=== PATIENT | male | born 1995 | race Caucasian/White ===

== ENCOUNTER 2024-06-24 16:51 | Emergency (ER) | payer OTHER, SELFPAY ==
[2024-06-24 16:52] VITALS: BP 130/79
[2024-06-24 17:11] LABS: % Basophils 0.4 % (0-2); % Eosinophils 2.1 % (0-6); % Immature Granulocytes 0.1 % (0-0.5); % Lymphocytes 19.9 % (20.5-51.1); % Monocytes 7.3 % (1.7-9.3); % Neutrophils 70.2 % (42.2-75.2); Absolute Eosinophils 0.2 10^3/uL (0-0.7); Absolute Lymphocytes 1.6 10^3/uL (1.2-3.4); Absolute Monocytes 0.6 10^3/uL (0.1-0.6); Absolute Neutrophils 5.7 10^3/uL (1.4-6.5); Hematocrit 42.4 % (39.0-52.0); Hemoglobin 14.3 g/dL (13.0-18.0); Mean Corp Hgb Conc. 33.7 g/dL (33.0-37.0); Mean Corpuscular Hgb 28.7 pg (27.0-31.0); Mean Platelet Volume 10.2 fL (7.4-10.4); Nucleated Red Blood Cells % 0 % (-); Platelet Count 266 10^3/uL (130-400); Red Blood Cell Count 4.99 10^6/uL (4.70-6.10); Red Cell Dist. Width 12.5 % (11.5-14.5); White Blood Cell Count 8.1 10^3/uL (4.8-10.8)
[2024-06-24 17:20] LABS: ALT (SGPT) 14 U/L (0-50); AST (SGOT) 22 U/L (17-59); Alkaline Phosphatase 50 U/L (38-126); Blood Urea Nitrogen 14 mg/dl (9-20); Calcium 9.9 mg/dl (8.4-10.2); Carbon Dioxide 29 mmol/L (22-30); Chloride 103 mmol/L (98-107); Glucose 89 mg/dl (70-99); Lipase 61 U/L (23-300); Sodium 142 mmol/L (135-145); Total Bilirubin 0.4 mg/dl (0.2-1.3); Total Protein 7.8 g/dl (6.3-8.2); eGFR > 60.00
[2024-06-24 17:26] LABS: Potassium 5.1 mmol/L (3.5-5.1)
[2024-06-24 18:00] LABS: Urine Albumin Negative (Neg - Trace); Urine Bilirubin Negative (Negative); Urine Character Clear (Clear); Urine Color Yellow; Urine Glucose Negative (Negative); Urine Ketone Negative (Negative); Urine Leukocyte Negative (Negative); Urine Nitrite Negative (Negative); Urine Occult Blood Negative (Negative); Urine Specific Gravity 1.015 (<1.030); Urine Urobilinogen Negative (Neg - 1+); Urine pH 6.5 (5.0-9.0)
[2024-06-24 18:21] VITALS: BMI 29.3
--- NOTE | 2024-06-24 18:39 | ED.GENMED ---
History of Present Illness
<Ysabel López PA-C - Last Filed: 06/26/24 13:51>
General
Chief Complaint: Abdominal Pain
Source: patient
Exam Limitations: none
Time Seen by Provider: 06/24/24 17:32
Nursing documentation reviewed up to this point in time: agreed with
History of Present Illness
History of Present Illness:
29 y/o M
h/o remote hernia repair (peds, inguinal) x 3
appe
here with lower abd pain and loose stools x 6 days
has had 4-5 episodes nonbloody not totally formed stools
had URI last week before these symtpoms started, cough, sore throat hwich resolved
then the abd pain/loost stools started
abd pain is colicky, not worse with eating
no fever/chills/bloodys tool, recent abx
no urinary sypmtoms, testicular pain/swelling
pt says he knows that his mesh was recalled and is concerned that he has a bowel obstruction
pain is minimal at the moemnt; hasn't tried anything to help tjje pain.
he also has had gallbladder sludge previously; has had a few episodes of pain in RUQ but this doesn't feel at all like that.
pt did not test for covid
he has never had vaccine
Past History
<Ysabel López PA-C - Last Filed: 06/26/24 13:51>
Past History
ED Past Medical History: None
ED Past Surgical History: Appendectomy and Other (hernia)
Social History
Tobacco: Non-smoker
Alcohol: None
Drug: None
Personal:
Living: with family
Review of Systems
<Ysabel López PA-C - Last Filed: 06/26/24 13:51>
Review of Systems
Allergies reviewed?: Yes
All Other Systems: Not applicable
Phy Exam
<Ysabel López PA-C - Last Filed: 06/26/24 13:51>
Physical Exam
Physical Exam:
GENERAL: Alert , in no apparent distress
EYE: pupils equal and reactive
NECK: Supple
ENT: o/p clr, mmm.
CARDIAC: Regular rate and rhythm .
LUNGS: Clear breath sounds bilaterally, no acute respiratory distress, no wheezes/rales/rhonchi
ABDOMEN: Soft, without focal tenderness, no r/g, no cvat, normal bowel sounds
neg murhy's sign
NEUROLOGICAL: Alert and oriented, no focal neuro deficits
SKIN: Warm and dry, skin intact.
PSYCH: Normal and appropriate interaction.
Course
<Ysabel López PA-C - Last Filed: 06/26/24 13:51>
Orders/Labs/Results
Orders:
Orders
06/24/24 16:58
Complete Blood Count/With Diff Urgent
Comprehensive Metabolic Panel Urgent
Lipase Urgent
06/24/24 17:47
Urinalysis Reflex To Culture Urgent
Date Specimen was Collected: 06/24/24
Time Specimen was Collected: 16:55
06/24/24 17:58
CT Abd/Pel (IV only)-DH only Urgent
Comment:
Reason For Exam: LOWER ABD PAIN, DIARRHEA X 6 DAYS
Dicyclomine [Bentyl] 20 mg PO NOW STA
06/24/24 19:52
LevoFLOXacin [Levaquin] 500 mg PO NOW STA
Abnormal Lab Results
06/24/24
16:58
Lymphocytes % 19.9 L %
(20.5-51.1)
06/24/24 16:58
06/24/24 16:58
Vital Signs
Initial and Last Documented VS:
Initial Vital Signs
Temp Pulse Resp BP Pulse Ox
97.7 F 73 16 130/79 100
06/24/24 16:52 06/24/24 16:52 06/24/24 16:52 06/24/24 16:52 06/24/24 16:52
Last Documented Vital Signs
Temp Pulse Resp BP Pulse Ox
97.7 F 73 16 130/79 100
06/24/24 16:52 06/24/24 16:52 06/24/24 16:52 06/24/24 16:52 06/24/24 16:52
<Ana Paula Escamilla NP - Last Filed: 06/25/24 18:51>
Orders/Labs/Results
Orders:
Orders
06/24/24 16:58
Complete Blood Count/With Diff Urgent
Comprehensive Metabolic Panel Urgent
Lipase Urgent
06/24/24 17:47
Urinalysis Reflex To Culture Urgent
Date Specimen was Collected: 06/24/24
Time Specimen was Collected: 16:55
06/24/24 17:58
CT Abd/Pel (IV only)-DH only Urgent
Comment:
Reason For Exam: LOWER ABD PAIN, DIARRHEA X 6 DAYS
Dicyclomine [Bentyl] 20 mg PO NOW STA
06/24/24 19:52
LevoFLOXacin [Levaquin] 500 mg PO NOW STA
Abnormal Lab Results
06/24/24
16:58
Lymphocytes % 19.9 L %
(20.5-51.1)
06/24/24 16:58
06/24/24 16:58
Vital Signs
Initial and Last Documented VS:
Initial Vital Signs
Temp Pulse Resp BP Pulse Ox
97.7 F 73 16 130/79 100
06/24/24 16:52 06/24/24 16:52 06/24/24 16:52 06/24/24 16:52 06/24/24 16:52
Last Documented Vital Signs
Temp Pulse Resp BP Pulse Ox
97.7 F 73 16 130/79 100
06/24/24 16:52 06/24/24 16:52 06/24/24 16:52 06/24/24 16:52 06/24/24 16:52
<Ysabel López PA-C - Last Filed: 06/26/24 13:51>
MDM/Problems Addressed
Differential Diagnosis Includes:
colitis, bowel obstruction, uti, hernia
MDM/Problems Addressed:
29 y/o M with h/o remote childhood inguinal hernia repairs
appe
here with lower abd pain and loose stool after havin URI last week
he has not had any c diff RF
no fever
no bloody stool
pain comes and goes
nothing tried for symptoms
well appearing
nontender abdomen
normal wbc
neg ua
will obtain CT
<Ana Paula Escamilla NP - Last Filed: 06/25/24 18:51>
*Critical Care Note
Total Time (30-74mins, 75-104mins- exclusive of procedures): Not Applicable
<Ana Paula Escamilla NP - Last Filed: 06/25/24 18:51>
Update Note
Update Note:
Ct report reviewed. +proctitis. Discussed case with Dr. Quintero. WIll give 5 day course of levquin. Initiated in ED. WIll discharge home on clear liquids, close follow up with PCP. Given instructions on s/s to return ot ED and he is agreeable
to plan.
ED Attending Note
<Ysabel López PA-C - Last Filed: 06/26/24 13:51>
-
Portions of this chart may have been created with voice recognition software.� Occasional wrong word or��sound alike� substitutions may have occurred due to the inherent limitations of voice recognition software.
Discharge Plan
Departure
Patient Disposition: Home (Routine Discharge)
Date of Disposition: 06/24/24
Time of Disposition: 19:53
Patient with high blood pressure during this ER visit?: No
Condition: Good
Covid-19: Not Applicable
Discharge Problem:
Abdominal pain
Instructions: Diarrhea in teens and adults, Abdominal Pain
Prescriptions:
New
dicyclomine 20 mg tablet
20 mg PO TID PRN (Reason: ABDOMINAL PAIN) Qty: 15 0RF
levofloxacin 500 mg tablet
500 mg PO DAILY 5 Days Qty: 5 0RF
No Action
oxycodone 5 mg tablet
5 mg PO Q4HPRN PRN (Reason: breakthrough/severe pain) Qty: 12 0RF
Referrals:
Moira Gomez MD [Family Provider] -
Activity Restrictions/Additional Instructions:
YOUR BLOOD WORK AND URINE WERE REASSURING
WE DID A CAT SACAN OF YOUR ABDOMEN
EAT A BLAND DIET
STAY HYDRATED
USE THE BRAT DIET (BANANAS RICE APPLESAUCE TOAST) TO HELP WITH YOUR STOOLS
FOR PAIN YOU CAN TRY BENTYL 20 MG 3 TIMES A DAY NEEDED
IF YOU DONT HAVE PAIN YOU DO NOT NEED TO TAKE THIS MEDICATION
FOLLOW UP WITH GI DOCTOR PLANNED
RETURN FOR: SEVERE DIARRHEA, BLOODY STOOL, FEVER, VOMITING, OR ANY CONCERNS.
Interventions
Interventions:
*Risk Screen - Suicide Last Done: 06/24/24 18:42
*General Assessment Last Done: 06/24/24 18:42
*Neglect/Abuse Screening Last Done: 06/24/24 18:42
*ED COVID-19 Vaccine History Last Done: 06/24/24 18:21
*Nursing Disposition Last Done: 06/24/24 20:07
[facility] Assessment Last Done: 06/24/24 18:24
Discharge Date and Time
Discharge Date/Time: 06/24/24 20:16
Print Language: SAMI
[2024-06-24] MEDS: BENTYL 20 MG PO (18:40)
[2024-06-24] MEDS: LEVAQUIN 500 MG PO (20:13)
== END 2024-06-24 20:16 | disposition home or self-care (01) ==
LOC: EMR 16:51
PROVIDERS: EMERGENCY PHYSICIAN Student in an Organized Health Care Education/Training Program; FAMILY PHYSICIAN Internal Medicine
DX: R10.30 Lower abdominal pain, unspecified (principal); R19.7 Diarrhea, unspecified; Z90.49 Acquired absence of other specified parts of digestive tract
CPT/HCPCS: 99284; 74177; 80053; 81003; 83690; 85025; Q9967

== ENCOUNTER 2024-07-08 06:57 | Emergency (ER) | payer OTHER, SELFPAY ==
[2024-07-08 06:58] VITALS: BP 129/89
--- NOTE | 2024-07-08 08:07 | ED.GENMED ---
History of Present Illness
<Bindu Olivas MD, Resident - Last Filed: 07/08/24 11:11>
General
Chief Complaint: Abdominal Pain
Source: patient
Time Seen by Provider: 07/08/24 08:05
History of Present Illness
History of Present Illness:
This is a 22 year old male patient with PMH of prior inguinal surgeries (x3 right ingunial hernia repair) who presented to the ED with concerns of abdominal pain. He states that he continues to have abdominal pain in the right upper quadrant that is
intermittent colicky type of pain that is associated with meals and 1 episode of vomiting this morning. He also has 4-5 watery diarrhea episodes in a day that is non-bloody. He denies any fever, chills or difficulty in urination. He was recently
seen in the ER 2 weeks ago for similar complaints and was discharge with 5 day course of levaquin that he finished. He did not find any relief after antibiotic and did follow up with his PCP who had set up a GI appointment for him next week.
Past History
<Bindu Olivas MD, Resident - Last Filed: 07/08/24 11:11>
Past History
ED Past Medical History: None
ED Past Surgical History: Appendectomy and Other (right inguinal hernia)
Social History
Tobacco: Non-smoker
Alcohol: None
Drug: None
Personal:
Living: with family
Review of Systems
<Bindu Olivas MD, Resident - Last Filed: 07/08/24 11:11>
Review of Systems
Constitutional: Denies fever or chills
Respiratory: Reports no symptoms
Cardiac: Reports no symptoms
ABD/GI: Reports abdominal pain, vomiting and diarrhea
: Denies dysuria
Musculoskeletal: Reports no symptoms
Phy Exam
<Bindu Olivas MD, Resident - Last Filed: 07/08/24 11:11>
General Physical Exam
General Presentation: no apparent distress
Cardiovascular Exam
Cardiovascular Exam: regular rate/rhythm and no murmur
Heart Sounds: normal
Pulmonary Exam
Pulmonary Exam: lungs clear, no respiratory distress and no crackles
Gastrointestinal Exam
Gastrointestinal Exam: soft, non distended, no masses and tender (right upper quadrant)
Neurological Exam
Neurological Exam: oriented x3 and speech normal
Musculoskeletal Exam
Musculoskeletal Exam: no edema
Skin Exam
Skin Exam: warm/dry
Psychiatric Exam
Psychiatric Exam: normal mood/affect
Course
<Bindu Leydi Olivas MD, Resident - Last Filed: 07/08/24 11:11>
Orders/Labs/Results
Orders:
Orders
07/08/24 08:32
Acetaminophen [Tylenol] 650 mg PO NOW STA
07/08/24 08:33
US Abdomen Complete/Upper Urgent
Comment:
Reason For Exam: right upper quadrant pain
07/08/24 08:40
Complete Blood Count/With Diff Urgent
Comprehensive Metabolic Panel Urgent
Lipase Urgent
C DIFF [C difficile Antigen & Toxins] Urgent
[place] Source: Feces/Stool
Specimen Description:
Date Specimen was Collected: 07/08/24
Time Specimen was Collected: 08:39
07/08/24 08:41
Stool Culture Urgent
[place] Source: Feces/Stool
Specimen Description:
Date Specimen was Collected: 07/08/24
Time Specimen was Collected: 08:48
Abnormal Lab Results
07/08/24
08:40
MPV 10.6 H fL
(7.4-10.4)
Absolute Lymphs (auto) 0.7 L 10^3/uL
(1.2-3.4)
Immature Gran % 0.6 H %
(0-0.5)
Neutrophils % 80.4 H %
(42.2-75.2)
Lymphocytes % 10.1 L %
(20.5-51.1)
BUN 7 L mg/dl
(9-20)
07/08/24 08:40
07/08/24 08:40
Vital Signs
Initial and Last Documented VS:
Initial Vital Signs
Temp Pulse Resp BP Pulse Ox
98.2 F 84 16 129/89 98
07/08/24 06:58 07/08/24 06:58 07/08/24 06:58 07/08/24 06:58 07/08/24 06:58
Last Documented Vital Signs
Temp Pulse Resp BP Pulse Ox
98.2 F 71 16 124/77 98
07/08/24 06:58 07/08/24 10:33 07/08/24 10:33 07/08/24 10:33 07/08/24 10:33
<Monie Hoff MD - Last Filed: 07/08/24 10:39>
Orders/Labs/Results
Orders:
Orders
07/08/24 08:32
Acetaminophen [Tylenol] 650 mg PO NOW STA
07/08/24 08:33
US Abdomen Complete/Upper Urgent
Comment:
Reason For Exam: right upper quadrant pain
07/08/24 08:40
Complete Blood Count/With Diff Urgent
Comprehensive Metabolic Panel Urgent
Lipase Urgent
C DIFF [C difficile Antigen & Toxins] Urgent
[place] Source: Feces/Stool
Specimen Description:
Date Specimen was Collected: 07/08/24
Time Specimen was Collected: 08:39
07/08/24 08:41
Stool Culture Urgent
[place] Source: Feces/Stool
Specimen Description:
Date Specimen was Collected: 07/08/24
Time Specimen was Collected: 08:48
Abnormal Lab Results
07/08/24
08:40
MPV 10.6 H fL
(7.4-10.4)
Absolute Lymphs (auto) 0.7 L 10^3/uL
(1.2-3.4)
Immature Gran % 0.6 H %
(0-0.5)
Neutrophils % 80.4 H %
(42.2-75.2)
Lymphocytes % 10.1 L %
(20.5-51.1)
BUN 7 L mg/dl
(9-20)
07/08/24 08:40
07/08/24 08:40
Vital Signs
Initial and Last Documented VS:
Initial Vital Signs
Temp Pulse Resp BP Pulse Ox
98.2 F 84 16 129/89 98
07/08/24 06:58 07/08/24 06:58 07/08/24 06:58 07/08/24 06:58 07/08/24 06:58
Last Documented Vital Signs
Temp Pulse Resp BP Pulse Ox
98.2 F 71 16 124/77 98
07/08/24 06:58 07/08/24 10:33 07/08/24 10:33 07/08/24 10:33 07/08/24 10:33
<Bindu Leydi Olivas MD, Resident - Last Filed: 07/08/24 11:11>
MDM/Problems Addressed
Differential Diagnosis Includes:
Acute cholecystitis, IBS, gastroenteritis, C. Diff, Crohn's disease, biliary cholic
MDM/Problems Addressed:
Pt likely to have IBS/inflammatory bowel disease mainly due to previous LFT's and CT abd showing no evidence of biliary cause of problem. US abd ordered along with stool culture and CBC/CMP. US abd with no acute abnormalities as well as no elevated
WBC or LFTS. Stool cultures pending. Pt will be discharged, will be advised to follow up with GI and general surgery (possible elective cholecystectomy) and Bentyl (pt only has enough for 1-2 days left at home.
<Bindu Olivas MD, Resident - Last Filed: 07/08/24 11:11>
*Critical Care Note
Total Time (30-74mins, 75-104mins- exclusive of procedures): Not Applicable
ED Attending Note
<Bindu Olivas MD, Resident - Last Filed: 07/08/24 11:11>
-
Portions of this chart may have been created with voice recognition software.� Occasional wrong word or��sound alike� substitutions may have occurred due to the inherent limitations of voice recognition software.
<Monie Hoff MD - Last Filed: 07/08/24 10:39>
ED Attending Note
Patient seen and examined by attending physician: Yes
I performed a history and physical exam of patient and discussed management with resident, I reviewed resident's note and agree with documented findings and plan of care.: Yes
ED Attending Note:
I have seen and evaluated the patient with a [id number]-vwnk encounter. I have spoken to the resident and involved in the medical history, the physical exam, medical decision making.
Evaluation and management service: agree unless noted differently below.
Results interpretation: agree unless noted differently below.
29-year-old male presenting to the emergency department with abdominal pain. Per chart review patient was seen here about 2 weeks ago for abdominal pain diarrhea diagnosed with proctitis and sent home on Levaquin. He finished antibiotics about a
week ago. Follow-up with his PCP. He does have a GI appointment scheduled for next week. He states that has been having ongoing pain. He states that when he took the antibiotic and worsen the symptoms and caused him bloating and reflux. His
pain is in his right upper quadrant. It is worse after meals. He states that occurred this morning and lasted about 20 to 30 minutes with some nausea. It has since subsided. He does have history of gallbladder sludge. He does state that he has
4-5 episodes of nonbloody watery diarrhea per day. No prior colonoscopy. No family history of ulcerative colitis or Crohn's. No recent travel antibiotics rashes or tick bites. This is never happened to him before. No chest pain or shortness of
breath. Denies any pain with defecation or urinary problems.
GENERAL: in no acute distress
HEENT: normocephalic, extraocular movements intact, moist oral mucosa
NECK: normal inspection
RESPIRATORY: no respiratory distress, clear to auscultation bilaterally
CARDIOVASCULAR: regular rate and rhythm
ABDOMEN/: soft, non-distended, right upper quadrant tenderness to palpation, mild epigastric tenderness no rebound or guarding
EXTREMITIES: non-tender, no edema/swelling
NEUROLOGIC: awake and alert, moves all extremities
SKIN: warm
MDM: Patient is a 29-year-old man presenting to the emergency department with a few weeks of abdominal pain and diarrhea. Vitals unremarkable and exam does show a well-appearing gentleman with right upper quadrant tenderness to palpation.
Differential consists of cholecystitis versus pancreatitis versus viral illness versus IBD. Could also be C. difficile for the watery diarrhea worsening after antibiotics. Will check blood work stool samples and obtain an ultrasound. Will pain
control. Anticipate discharge with GI follow-up as already scheduled for early next week.
Blood work notable for normal white count with slightly elevated neutrophils. C. difficile is negative. Remaining stool cultures pending. Ultrasound abdomen negative. Will discharge at this time with GI follow-up. Patient does have Bentyl at
home.
Discharge Plan
Departure
Patient Disposition: Home (Routine Discharge)
Date of Disposition: 07/08/24
Time of Disposition: 10:34
Patient with high blood pressure during this ER visit?: No
Discharge Problem:
Abdominal pain, Diarrhea
Prescriptions:
New
dicyclomine 20 mg tablet
20 mg PO TID 5 Days Qty: 15 0RF
No Action
oxycodone 5 mg tablet
5 mg PO Q4HPRN PRN (Reason: breakthrough/severe pain) Qty: 12 0RF
dicyclomine 20 mg tablet
20 mg PO TID PRN (Reason: ABDOMINAL PAIN) Qty: 15 0RF
levofloxacin 500 mg tablet
500 mg PO DAILY 5 Days Qty: 5 0RF
Referrals:
Ethan Ramirez PA [Family Provider] -
Activity Restrictions/Additional Instructions:
If worsening symptoms such as severe abdominal pain, uncontrollable vomiting or high grade fevers, please return to the ER. When stool culture results are received and patient is called with results, he may use Imodium for diarrheal relief.
Follow up with GI outpatient.
Interventions
Interventions:
*Risk Screen - Suicide Last Done: 07/08/24 06:58
*General Assessment Last Done: 07/08/24 06:58
*Neglect/Abuse Screening Last Done: 07/08/24 06:58
ED- Fall Risk Assessment Last Done: 07/08/24 10:50
*ED COVID-19 Vaccine History Last Done: 07/08/24 07:36
*Nursing Disposition Last Done: 07/08/24 10:50
[facility] Assessment Last Done: 07/08/24 07:36
Discharge Date and Time
Discharge Date/Time: 07/08/24 10:50
Print Language: YAKUT
[2024-07-08 08:51] LABS: % Basophils 0.3 % (0-2); % Eosinophils 1.6 % (0-6); % Immature Granulocytes 0.6 % (0-0.5); % Lymphocytes 10.1 % (20.5-51.1); % Neutrophils 80.4 % (42.2-75.2); Absolute Eosinophils 0.1 10^3/uL (0-0.7); Absolute Lymphocytes 0.7 10^3/uL (1.2-3.4); Absolute Monocytes 0.5 10^3/uL (0.1-0.6); Absolute Neutrophils 5.5 10^3/uL (1.4-6.5); Hematocrit 42.1 % (39.0-52.0); Hemoglobin 14.4 g/dL (13.0-18.0); Mean Corp Hgb Conc. 34.2 g/dL (33.0-37.0); Mean Corpuscular Hgb 29.2 pg (27.0-31.0); Mean Corpuscular Volume 85.4 fL (80.0-94.0); Mean Platelet Volume 10.6 fL (7.4-10.4); Nucleated Red Blood Cells % 0 % (-); Platelet Count 219 10^3/uL (130-400); Red Blood Cell Count 4.93 10^6/uL (4.70-6.10); Red Cell Dist. Width 12.7 % (11.5-14.5); White Blood Cell Count 6.9 10^3/uL (4.8-10.8)
[2024-07-08 09:14] LABS: ALT (SGPT) 14 U/L (0-50); AST (SGOT) 20 U/L (17-59); Albumin 4.7 g/dl (3.5-5.0); Alkaline Phosphatase 50 U/L (38-126); Blood Urea Nitrogen 7 mg/dl (9-20); Calcium 9.8 mg/dl (8.4-10.2); Carbon Dioxide 28 mmol/L (22-30); Chloride 105 mmol/L (98-107); Glucose 98 mg/dl (70-99); Lipase 44 U/L (23-300); Potassium 4.7 mmol/L (3.5-5.1); Sodium 142 mmol/L (135-145); Total Bilirubin 0.6 mg/dl (0.2-1.3); Total Protein 7.4 g/dl (6.3-8.2); eGFR > 60.00
[2024-07-08 09:31] VITALS: BP 128/72
[2024-07-08 10:33] VITALS: BP 124/77
== END 2024-07-08 10:50 | disposition home or self-care (01) ==
LOC: EMR 06:57
PROVIDERS: Student in an Organized Health Care Education/Training Program; EMERGENCY PHYSICIAN Student in an Organized Health Care Education/Training Program; FAMILY PHYSICIAN Physician Assistant
DX: R10.11 Right upper quadrant pain (principal); R19.7 Diarrhea, unspecified; R11.2 Nausea with vomiting, unspecified; Z88.0 Allergy status to penicillin; Z88.2 Allergy status to sulfonamides; Z91.040 Latex allergy status
CPT/HCPCS: 99284; 76700; 80053; 83690; 85025; 87045; 87046; 87324; 87427; 87449

== ENCOUNTER → 2024-08-15 07:37 | Outpatient (REF) | payer OTHER, SELFPAY | LOC: RAD 07:37 | PROVIDERS: ATTENDING PHYSICIAN Internal Medicine Gastroenterology; FAMILY PHYSICIAN Physician Assistant | DX: R10.11 Right upper quadrant pain (principal) | CPT/HCPCS: 78227; A9537; J2805 ==

== ENCOUNTER 2024-08-20 06:25 | Day surgery (SDC) | payer OTHER, SELFPAY | END 2024-08-20 16:06 | LOC: GI 06:25 | PROVIDERS: ATTENDING PHYSICIAN Internal Medicine Gastroenterology | DX: R10.30 Lower abdominal pain, unspecified (principal); R93.3 Abnormal findings on diagnostic imaging of other parts of digestive tract; R19.4 Change in bowel habit; K64.8 Other hemorrhoids; R10.11 Right upper quadrant pain; K44.9 Diaphragmatic hernia without obstruction or gangrene; K22.89 Other specified disease of esophagus; K29.70 Gastritis, unspecified, without bleeding; K51.418 Inflammatory polyps of colon with other complication | CPT/HCPCS: 45385; 45380; 43239; 88305; 88341; 88342 ==

== ENCOUNTER 2025-07-11 10:21 | Emergency (ER) | payer OTHER, SELFPAY ==
[2025-07-11 10:25] VITALS: BP 151/89
[2025-07-11 10:34] LABS: Glucose - Point of Care 114 mg/dl (70-99)
[2025-07-11 11:06] VITALS: BP 135/79
[2025-07-11 11:12] VITALS: BMI 29.8
[2025-07-11 12:00] VITALS: BP 135/80
[2025-07-11] MEDS: ANTIVERT 25 MG PO (12:40)
[2025-07-11] MEDS: TORADOL 30 MG IV (12:40)
[2025-07-11] MEDS: REGLAN 10 MG IV (12:40)
[2025-07-11] MEDS: NSS 1000 IV (12:41)
--- NOTE | 2025-07-11 12:42 | ED.GENMED ---
History of Present Illness
General
Chief Complaint: Dizziness
Source: patient
Exam Limitations: none
Time Seen by Provider: 07/11/25 12:08
Nursing documentation reviewed up to this point in time: agreed with
History of Present Illness
History of Present Illness:
see MDM
Past History
Past History
ED Past Medical History: None
ED Past Surgical History: Appendectomy and Other (right inguinal hernia)
Social History
Tobacco: Non-smoker
Alcohol: None
Drug: None
Personal:
Living: with family
Review of Systems
Review of Systems
Allergies reviewed?: Yes
All Other Systems: Not applicable
Phy Exam
Physical Exam
Physical Exam:
See MDM
Course
Orders/Labs/Results
Orders:
Orders
07/11/25 12:30
Electrocardiogram (*1) Stat
Reason for Study: Other
Other Reason for Exam: Headache
CT Head W/o Iv Contrast Urgent
Comment:
Reason For Exam: dizziness, headache
EKG- Treatment ONCE
0.9% Sodium Chloride 1000 ml [Nss] 1,000 ml IV BOLUS
Ketorolac [Toradol] 30 mg IV NOW STA
Meclizine [Antivert] 25 mg PO NOW STA
Metoclopramide [Reglan] 10 mg IV NOW STA
07/11/25 12:40
COVID-19 Antigen Urgent
Source: Nasal Swab
Complete Blood Count/With Diff Urgent
Comprehensive Metabolic Panel Urgent
Abnormal Lab Results
07/11/25 07/11/25
10:31 12:40
Absolute Lymphs (auto) 1.0 L 10^3/uL
(1.2-3.4)
Neutrophils % 78.8 H %
(42.2-75.2)
Lymphocytes % 15.1 L %
(20.5-51.1)
Glucose 104 H mg/dl
(70-99)
Total Protein 8.3 H g/dl
(6.3-8.2)
POC Glucose 114 H mg/dl
(70-99)
07/11/25 12:40
07/11/25 12:40
Vital Signs
Initial and Last Documented VS:
Initial Vital Signs
Temp Pulse Resp BP Pulse Ox
36.6 C 76 16 151/89 99
07/11/25 10:25 07/11/25 10:25 07/11/25 10:25 07/11/25 10:25 07/11/25 10:25
Last Documented Vital Signs
Temp Pulse Resp BP Pulse Ox
36.6 C 77 14 124/71 100
07/11/25 10:25 07/11/25 13:45 07/11/25 13:45 07/11/25 13:00 07/11/25 13:45
MDM/Problems Addressed
Differential Diagnosis Includes:
See MDM
MDM/Problems Addressed:
Note:
CHIEF COMPLAINT(S)
Dizziness and vertigo.
HISTORY OF PRESENT ILLNESS
The patient is a 30-year-old male who presents with a primary complaint of dizziness since yesterday afternoon.
pt woke up yesterday with headache along his eyebrow region both sides, which was mild at first and gradually progressed in severity throughout the day. The headache initially rated as a 5 out of 10 on a pain scale, escalated before subsiding after
treatment with tltc-skr-[id number] medications, tylenol first and then motrin. The patient experienced residual dizziness after the headache dissipated and has found no relief, even when lying down.
the dizziness is more of an off balance, fuzzy feeling, where he is having trouble focusing and less like room spinning positioanl dizziness.
pt still feels dizzy even with closed eyes
. There is a family history of migraines�his mother experiences them consistently.
He denies any significant alcohol consumption, drug use, history of brain imaging, or any prior emergency department visits for headaches. his brother who works in the same job as pt is undergoing investigation for persistent dizziness, suspected
to be either BPPV or a spinal cord tumor, or maybe related to lead or metal poisoning; pt is not sure.
SOCIAL DETERMINANTS AFFECTING HEALTH
The patient reports once-monthly alcohol consumption, typically two drinks, never in excess. He denies illicit drug use.
REVIEW OF SYSTEMS
- Neurological: Reports dizziness, headache radiating across the head, no numbness or tingling.
- Musculoskeletal: Mild chest muscular discomfort.
- Respiratory: Denies shortness of breath, cough, or recent viral exposures.
- General: No fever, chills, or sore throat.
PHYSICAL EXAM
GENERAL: Alert , in no apparent distress
HEAD: NCAT
EYE: pupils equal and reactive, no nystagmus, no photophobia
NECK: Supple,full rom, nontender
ENT: o/p clr, mmm.
CARDIAC: Regular rate and rhythm . no edema
LUNGS: Clear breath sounds bilaterally, no acute respiratory distress, no wheezes/rales/rhonchi
ABDOMEN: Soft, without focal tenderness, no r/g, no cvat
NEUROLOGICAL: Alert and orientedx 4, cn intact, no facial asymmetry, 5/5 strength in UE/LE, sensation intact, romberg neg, ambulates without assistance, neg pronator drift
SKIN: Warm and dry, skin intact.
MUSCULOSKELETAL: No edema, well perfused.
PSYCH: Normal and appropriate interaction.
Katie-Hallpike negative
- Nursing notes reviewed and vital signs reviewed.
PROBLEM LIST
- Acute: Migraine, Dizziness/Vertigo.
- Chronic: Family history of migraines.
PLAN
- Blood work to rule out potential causes of dizziness, including a COVID-19 test.
- Initiation of imaging with a CT scan for assessment of possible structural causes.
- Consideration of treatment with Meclizine for dizziness control.
- Administer a therapeutic regimen comprising of Ibuprofen, Metoclopramide (Reglan), to address migraine components, and possibly Meclizine to substitute additional antihistamine therapy to mitigate dizziness.
- Monitor the patients response to treatment, reassessment following initial results to determine necessity for further imaging or therapeutic adjustments.
DIFFERENTIAL DIAGNOSIS
The Differential Diagnosis includes, in no particular order and is not limited to:
- Migraine with aura
- Benign Paroxysmal Positional Vertigo (BPPV)
- Vestibular neuritis
- Menieres disease
- Labyrinthitis
- Tension-type headache with vestibular symptoms
- Vestibular migraine
- Anxiety-related dizziness
- Viral labyrinthitis post-viral syndrome
- Tumor (less likely but considered given familial history).
CARE-UPDATE
07/11/25 - 12:52
The patient mentioned their brother tested high for lead and mercury and is currently undergoing chelation therapy under their primary cares guidance. The patient shares the same occupational exposure as their brother, raising concern about
potential heavy metal exposure. The physician acknowledges the potential environmental risk and agrees to consider testing the patient for heavy metals. There is no immediate sense of urgency from the patient regarding symptoms related to heavy
metal exposure.
CARE-UPDATE
07/11/25 - 14:28
Patient reports improvement in dizziness following initial treatment down to a 3 out of 10. Current blood work results show no abnormalities, ruling out anemia and infection. No COVID detected. Migraine suspected as a potential trigger for recent
symptoms. New treatment plan includes taking ibuprofen three times daily for two days to prevent migraine rebound, and meclizine as needed, recognizing it may cause fatigue. Avoid specific movements to mitigate dizziness. Advised hydration, adequate
sleep, and trigger avoidance (caffeine, chocolate, stress). Discussed possibility of acupuncture for chronic symptoms instead of chiropractor manipulation, especially of the neck. CT results pending; further evaluation by a neurologist may be
warranted if symptoms persist.
*Pulse Oximetry
SaO2: 98
Oxygen Mode of Delivery: Room air
Patient hypoxic: no (100)
*Critical Care Note
Total Time (30-74mins, 75-104mins- exclusive of procedures): Not Applicable
ED Attending Note
-
Portions of this chart may have been created with voice recognition software.� Occasional wrong word or��sound alike� substitutions may have occurred due to the inherent limitations of voice recognition software.
Discharge Plan
Departure
Patient Disposition: Home (Routine Discharge)
Date of Disposition: 07/11/25
Time of Disposition: 14:30
Patient with high blood pressure during this ER visit?: No
Condition: Fair
Discharge Problem:
Migraine, Dizziness
Instructions: Migraine in adults, Dizziness
Prescriptions:
New
meclizine 25 mg tablet
25 mg PO TID PRN (Reason: dizziness) Qty: 12 0RF
ibuprofen 800 mg tablet
800 mg PO Q8H PRN (Reason: Pain) Qty: 20 0RF
No Action
oxycodone 5 mg tablet
5 mg PO Q4HPRN PRN (Reason: breakthrough/severe pain) Qty: 12 0RF
dicyclomine 20 mg tablet
20 mg PO TID PRN (Reason: ABDOMINAL PAIN) Qty: 15 0RF
levofloxacin 500 mg tablet
500 mg PO DAILY 5 Days Qty: 5 0RF
dicyclomine 20 mg tablet
20 mg PO TID 5 Days Qty: 15 0RF
Referrals:
Ethan Ramirez PA [Family Provider, Family Practice] - Follow up in 2-3 days
Activity Restrictions/Additional Instructions:
Your CAT scan showed a small mucous retention cyst which are typically asymptomatic. If they grow they can cause some sinus drainage problems but usually these are totally benign and asymptomatic. Otherwise your workup here was very reassuring.
You could have had a migraine that triggered this lightheadedness or dizziness. Try taking ibuprofen 800 mg 3 times a day for the next 2 days. Also meclizine 25 mg 3 times a day for the next few days. It may make you a little sleepy. This is
normal. After that you can only use use the meclizine as needed. Consider further outpatient workup with a neurologist or your family doctor if you continue to have symptoms of intermittent lightheadedness or headaches. Certainly return for
sudden worst headache of your life, severe neck pain with a headache and dizziness, vision changes or vision loss, numbness tingling or weakness, etc.
Interventions
Interventions:
*Risk Screen - Suicide Last Done: 07/11/25 10:25
*General Assessment Last Done: 07/11/25 10:25
*Neglect/Abuse Screening Last Done: 07/11/25 10:25
*ED- Fall Risk Assessment Last Done: 07/11/25 12:50
*ED COVID-19 Vaccine History Last Done: 07/11/25 10:25
*ED Influenza Vaccine History Last Done: 07/11/25 10:25
*Nursing Disposition Last Done: 07/11/25 14:42
ED- Neurological Assessment Last Done: 07/11/25 12:50
ED- Cardiac Assessment Last Done: 07/11/25 14:42
ED Swallowing Screen Last Done: 07/11/25 12:35
Discharge Date and Time
Discharge Date/Time: 07/11/25 14:43
Print Language: LITHUANIAN
[2025-07-11 12:56] LABS: Hematocrit 42.1 % (39.0-52.0); Hemoglobin 14.4 g/dL (13.0-18.0); Mean Corp Hgb Conc. 34.2 g/dL (33.0-37.0); Mean Corpuscular Volume 86.6 fL (80.0-94.0); Nucleated Red Blood Cells % 0 % (-); Platelet Count 248 10^3/uL (130-400); Red Cell Dist. Width 12.3 % (11.5-14.5)
[2025-07-11 13:00] VITALS: BP 124/71
[2025-07-11 13:09] LABS: ALT (SGPT) 14 U/L (0-50); AST (SGOT) 20 U/L (17-59); Albumin 5.0 g/dl (3.5-5.0); Alkaline Phosphatase 59 U/L (38-126); Blood Urea Nitrogen 9 mg/dl (9-20); Calcium 9.9 mg/dl (8.4-10.2); Carbon Dioxide 29 mmol/L (22-30); Chloride 106 mmol/L (98-107); Estimated Creatinine Clearance > 125 ml/min; Glucose 104 mg/dl (70-99); Potassium 4.6 mmol/L (3.5-5.1); Sodium 140 mmol/L (135-145); Total Protein 8.3 g/dl (6.3-8.2); eGFR > 60.00
[2025-07-11 13:13] LABS: COVID-19 Antigen Negative (Negative)
== END 2025-07-11 14:43 | disposition home or self-care (01) ==
LOC: EMR 10:21
PROVIDERS: Physician Assistant; EMERGENCY PHYSICIAN Emergency Medicine; FAMILY PHYSICIAN Physician Assistant
DX: G43.909 Migraine, unspecified, not intractable, without status migrainosus (principal); R42 Dizziness and giddiness; Z90.49 Acquired absence of other specified parts of digestive tract
CPT/HCPCS: 96374; 96375; 96361; 99284; 70450; 80053; 82962; 85025; 87811; 93005

== ENCOUNTER 2025-07-12 17:49 | Emergency (ER) | payer OTHER, SELFPAY ==
[2025-07-12 17:58] VITALS: BP 156/91
[2025-07-12 18:13] LABS: Hematocrit 42.4 % (39.0-52.0); Hemoglobin 14.5 g/dL (13.0-18.0); Mean Corp Hgb Conc. 34.2 g/dL (33.0-37.0); Mean Corpuscular Volume 85.1 fL (80.0-94.0); Nucleated Red Blood Cells % 0 % (-); Platelet Count 246 10^3/uL (130-400); Red Cell Dist. Width 12.4 % (11.5-14.5)
[2025-07-12 18:30] LABS: ALT (SGPT) 13 U/L (0-50); AST (SGOT) 20 U/L (17-59); Albumin 5.1 g/dl (3.5-5.0); Alkaline Phosphatase 50 U/L (38-126); Blood Urea Nitrogen 9 mg/dl (9-20); Calcium 9.7 mg/dl (8.4-10.2); Carbon Dioxide 29 mmol/L (22-30); Chloride 104 mmol/L (98-107); Glucose 105 mg/dl (70-99); Potassium 5.0 mmol/L (3.5-5.1); Sodium 140 mmol/L (135-145); Total Protein 8.1 g/dl (6.3-8.2); eGFR > 60.00
[2025-07-12 19:09] VITALS: BMI 29.3
--- NOTE | 2025-07-12 20:45 | ED.GENMED ---
History of Present Illness
<Dyllan Milton MD, Resident - Last Filed: 07/12/25 22:58>
General
Chief Complaint: Dizziness
Source: patient and family
Time Seen by Provider: 07/12/25 20:17
History of Present Illness
History of Present Illness:
Patient is a 30-year-old male is here for evaluation of dizziness. He was discharged from the hospital ER yesterday for similar complaints.
He reports that his symptoms has been progressive, he feels a constant sense of fog and dizziness that travels up from the back of his head to the face. He did have numbness and tingling over his face arms and hands that self resolved. He denies
any headache, fever, chills, sore throat, cough, malaise or any other issues.
He tried meclizine that was prescribed to him yesterday for his symptoms but that did not help at all came to the ER for worsening symptoms. Patient does report that his daughter has been sick with sore throat last few days.
Past History
<Dyllan Milton MD, Resident - Last Filed: 07/12/25 22:58>
Past History
ED Past Medical History: None
ED Past Surgical History: Appendectomy and Other (right inguinal hernia)
Social History
Tobacco: Non-smoker
Alcohol: None
Drug: None
Personal:
Living: with family
Phy Exam
<Dyllan Mitlon MD, Resident - Last Filed: 07/12/25 22:58>
General Physical Exam
General Presentation: well appearing and no apparent distress
General Skin: warm and dry
ENT Exam
ENT Exam: pharyngeal erythema and other (Facial erythema)
Cardiovascular Exam
Cardiovascular Exam: regular rate/rhythm, no gallop, no murmur and normal peripheral pulses
Pulmonary Exam
Pulmonary Exam: lungs clear and no respiratory distress
Gastrointestinal Exam
Gastrointestinal Exam: normal bowel sounds, non tender and soft
Neurological Exam
Neurological Exam: alert and oriented x3
Musculoskeletal Exam
Musculoskeletal Exam: full ROM
Skin Exam
Skin Exam: normal color and warm/dry
Psychiatric Exam
Psychiatric Exam: anxious
Course
<Dyllan Milton MD, Resident - Last Filed: 07/12/25 22:58>
Orders/Labs/Results
Orders:
Orders
07/12/25 18:07
Complete Blood Count/With Diff Urgent
Comprehensive Metabolic Panel Urgent
Lyme Progressive Urgent
07/12/25 21:43
Lorazepam [Ativan] 1 mg PO NOW STA
Abnormal Lab Results
07/12/25
18:07
Glucose 105 H mg/dl
(70-99)
Albumin 5.1 H g/dl
(3.5-5.0)
07/12/25 18:07
07/12/25 18:07
Vital Signs
Initial and Last Documented VS:
Initial Vital Signs
Temp Pulse Resp BP Pulse Ox
98.2 F 88 18 156/91 100
07/12/25 17:58 07/12/25 17:58 07/12/25 17:58 07/12/25 17:58 07/12/25 17:58
Last Documented Vital Signs
Temp Pulse Resp BP Pulse Ox
98.2 F 80 18 156/91 100
07/12/25 17:58 07/12/25 19:09 07/12/25 19:09 07/12/25 17:58 07/12/25 20:48
<Ethan Hu DO - Last Filed: 07/12/25 21:45>
Orders/Labs/Results
Orders:
Orders
07/12/25 18:07
Complete Blood Count/With Diff Urgent
Comprehensive Metabolic Panel Urgent
Lyme Progressive Urgent
07/12/25 21:43
Lorazepam [Ativan] 1 mg PO NOW STA
Abnormal Lab Results
07/12/25
18:07
Glucose 105 H mg/dl
(70-99)
Albumin 5.1 H g/dl
(3.5-5.0)
07/12/25 18:07
07/12/25 18:07
Vital Signs
Initial and Last Documented VS:
Initial Vital Signs
Temp Pulse Resp BP Pulse Ox
98.2 F 88 18 156/91 100
07/12/25 17:58 07/12/25 17:58 07/12/25 17:58 07/12/25 17:58 07/12/25 17:58
Last Documented Vital Signs
Temp Pulse Resp BP Pulse Ox
98.2 F 80 18 156/91 100
07/12/25 17:58 07/12/25 19:09 07/12/25 19:09 07/12/25 17:58 07/12/25 20:48
<Dyllan Milton MD, Resident - Last Filed: 07/12/25 22:58>
MDM/Problems Addressed
Differential Diagnosis Includes:
Viral illness
Migraines
Anxiety
MDM/Problems Addressed:
Extensive workup done, negative for any acute findings. Head CT negative for any acute abnormalities done on 07/11/2025
Blood work with no acute abnormalities
Lyme serology sent out, to be followed by the primary care physician
Reassured the patient, discharge and follow-up with primary care physician
<Dyllan Milton MD, Resident - Last Filed: 07/12/25 22:58>
*Pulse Oximetry
SaO2: 100
Oxygen Mode of Delivery: Room air
Patient hypoxic: no
*Critical Care Note
Total Time (30-74mins, 75-104mins- exclusive of procedures): Not Applicable
ED Attending Note
<Dyllan Milton MD, Resident - Last Filed: 07/12/25 22:58>
-
Portions of this chart may have been created with voice recognition software.� Occasional wrong word or��sound alike� substitutions may have occurred due to the inherent limitations of voice recognition software.
<Ethan Hu DO - Last Filed: 07/12/25 21:45>
ED Attending Note
Patient seen and examined by attending physician: Yes
I performed a history and physical exam of patient and discussed management with resident, I reviewed resident's note and agree with documented findings and plan of care.: Yes
ED Attending Note:
Seen with resident examined independently second ER visit with dizzy floating feeling seen here yesterday diagnosed with vertigo full workup took some meclizine today did not help him feeling better now in the dark room on exam he is nontoxic
well-appearing he has a nonfocal neurologic exam mild redness of the throat without any sore throat painful swallowing etc. do not think this is TOPSTITCHER LOCKSTITCH infection do not believe he is having a stroke, no believe is a seizure
Discharge Plan
Departure
Patient Disposition: Home (Routine Discharge)
Date of Disposition: 07/12/25
Time of Disposition: 22:44
Patient with high blood pressure during this ER visit?: No
Condition: Good
Discharge Problem:
Light-headed feeling
Instructions: Dizziness, Nonvertigo, (DC), Paresthesia (DC)
Prescriptions:
No Action
oxycodone 5 mg tablet
5 mg PO Q4HPRN PRN (Reason: breakthrough/severe pain) Qty: 12 0RF
dicyclomine 20 mg tablet
20 mg PO TID PRN (Reason: ABDOMINAL PAIN) Qty: 15 0RF
levofloxacin 500 mg tablet
500 mg PO DAILY 5 Days Qty: 5 0RF
dicyclomine 20 mg tablet
20 mg PO TID 5 Days Qty: 15 0RF
meclizine 25 mg tablet
25 mg PO TID PRN (Reason: dizziness) Qty: 12 0RF
ibuprofen 800 mg tablet
800 mg PO Q8H PRN (Reason: Pain) Qty: 20 0RF
Referrals:
Ethan Ramirez PA [Family Provider, Family Practice]
Interventions
Interventions:
*Risk Screen - Suicide Last Done: 07/12/25 17:58
*General Assessment Last Done: 07/12/25 17:58
*Neglect/Abuse Screening Last Done: 07/12/25 17:58
*ED- Fall Risk Assessment Last Done: 07/12/25 19:05
*ED COVID-19 Vaccine History Last Done: 07/12/25 19:05
*ED Influenza Vaccine History Last Done: 07/12/25 19:05
ED- Neurological Assessment Last Done: 07/12/25 19:06
ED- Cardiac Assessment Last Done: 07/12/25 22:48
ED Swallowing Screen Last Done: 07/12/25 19:06
Discharge Date and Time
Print Language: IVORIAN
[2025-07-12] MEDS: ATIVAN 1 MG PO (21:53)
== END 2025-07-12 23:00 | disposition home or self-care (01) ==
LOC: EMR 17:49
PROVIDERS: EMERGENCY PHYSICIAN Emergency Medicine; FAMILY PHYSICIAN Physician Assistant
DX: R42 Dizziness and giddiness (principal)
CPT/HCPCS: 99283; 80053; 85025; 86618